=== PATIENT | male | born 1965 ===

== ENCOUNTER 2020-08-29 12:36 | Outpatient (REF) | payer OTHER, SELFPAY ==
--- NOTE | 2020-08-29 16:42 | MHC.AU.ANH ---
Adult Audiological Evaluation Date of Visit: 08/29/20 Reason for Appointment: Audiological evaluation to monitor the status of Mr. Brothers's hearing loss. He reports that he has had progressive hearing loss since and first started using hearing aids at age 6-7. He is due for updated hearing aids and [facility]. Previous Hearing Test Results: [facility], 01/2015- Moderate sloping to profound sensorineural hearing loss bilaterally with poor speech understanding abilities. Speech understanding abilities improved with lip and facial cues. Ear History: Ear Deformity: Deformity of the ossicles since Family History of Hearing Loss?: Yes: Father, son Ear Infections in Childhood: Both Ears History of Ear Wax Buildup: Both Ears Medical History: Medical History: Unremarkable Medical History Hearing Instrument History- Binaural: Core Paster: Notorious Model: Daniella 2 Pro BTE Battery Size: 13 Dispensed By: [facility] Otoscopy: Right Ear: Unremarkable Left Ear: Unremarkable Tympanometry: Tympanometry performed due to: To assess integrity of the middle ear system Right Ear: Normal Middle Ear System (Type A) Left Ear: Normal Middle Ear System (Type A) Hearing Evaluation: Transducer(s) Used: Insert Earphones, Bone Conduction Method: Conventional Audiometry Stimuli Used: Pure Tones Right Ear: Description of Hearing: Moderate sloping to profound sensorineural hearing loss from 250-8000 Hz. Left Ear: Description of Hearing: Moderate sloping to profound sensorineural hearing loss from 250-8000 Hz. Speech Recognition Threshold (SRT): Method Used: Monitored Live Voice Stimuli Used: Spondee Words Right Ear: 55 dBHL Left Ear: 60 dBHL Word Discrimination: Method: Monitored Live Voice Word Lists Used: NU-6 Right Ear: 44% at 90 dBHL Left Ear: 48% at 90 dBHL Comparison: Compared to most recent evaluation: Slight decreases in hearing from 250-500 Hz bilaterally. All other thresholds are stable. Recommendations: Audiological re-evaluation in one year. See Hearing Aid Evaluation report for more information. Hearing aid options discussed. Amador quote is being submitted to [facility]. Once approved, aids and earmolds will be ordered and Mr. Brothers will be contacted to schedule a hearing aid fitting. Diagnosis: Primary Diagnosis: H90.3 Bilateral Sensorineural Hearing Loss Services Performed: Comprehensive Audiological Evaluation (CPT 46128) Tympanometry (CPT 07963) Signature: Provider: Kei Cho, CCC-A
--- NOTE | 2020-08-29 16:44 | MHC.AU.MED ---
Medical Clearance for Hearing Instrumentation Date: 08/29/20 Patient Name: Petar Brothers Date of : 1965 Referring Provider: Giuliana Emery NP We have seen your patient on 08/29/20 and have determined that they are a candidate for amplification (See accompanying report). Specifically, they would benefit from: Hearing aid use in both ears There is a statute that addresses Medical Evaluation Requirements prior to fitting a patient with a hearing aid. According to [place] statute [facility] CMR:6.03(1), (a) General. Except as provided in 265 CMR 6.03(1)(b), a supervisor trust accounts shall not sell a hearing aid unless the prospective user has presented to the supervisor trust accounts a written statement signed by a licensed physician that states that the patient's hearing loss has been medically evaluated and the patient may be considered a candidate for a hearing aid. The medical evaluation must have taken place within the preceding six months. Please note: Due to the [place] Statute referenced above, we cannot accept a signature other than that of a licensed physician. [employer] and PA signatures cannot be accepted. I am in agreement with the above recommendation. There is no medical contraindication for hearing instrumentation. Physician Signature Date Physician Name (Printed)
--- NOTE | 2020-08-29 16:45 | MHC.AU.HAS ---
Hearing Aid Evaluation Date of Visit: 08/29/20 Historical Information: Description of Hearing: Moderate sloping to profound sensorineural hearing loss bilaterally. Current personal amplification information, if applicable: Oticon [place] 2 Pro BTEs Summary: Mr. Brothers is due for updated hearing aids and will be going through [facility] for his new hearing aids. Discussed options. Would like to stay with a similar BTE model. Recommend staying with Oticon as it is what he is used to. Hearing Aid Prescription: Based on the individual?s shared listening needs, communication environments, dexterity, desire for connectivity, and personal preferences, the following prescription for amplification has been made: Right ear: Circuit Court Clerk: Oticon Model: Opn S 2 BTE PP Battery Size: 13 Color: 90- Chroma Beige Type of Mold: Standard shell mold Left ear: Left ear prescription to be same as Right Hearing Aid above: Circuit Court Clerk: Oticon Model: Opn S 2 BTE PP Battery Size: 13 Color: 90 - Chroma Beige Type of Mold: Standard shell mold Accessories/Assistive Technology Recommended: ConnectClip for use with his work cell phone Action Taken/Action Needed: Amador quote being sent to [facility]. Earmold impressions in hold drawer. Will order aids and earmolds once approval from [facility] is received. Primary Diagnosis: H90.3 Bilateral Sensorineural Hearing Loss Signature: Provider: Kei Cho, [facility]
== END 2020-08-29 12:37 | disposition home or self-care (01) ==
LOC: HO.SH 12:36
PROVIDERS: Visit Provider Nurse Practitioner Adult Health
DX: H90.3 Sensorineural hearing loss, bilateral (principal)
CPT/HCPCS: 92557; 92567

== ENCOUNTER 2020-12-07 09:21 | Outpatient (REF) | payer SELFPAY | END 2020-12-07 09:22 | disposition home or self-care (01) | LOC: HO.HAP 09:21 | PROVIDERS: PCP Nurse Practitioner Adult Health; Visit Provider Nurse Practitioner Adult Health | DX: Z13.89 Encounter for screening for other disorder (principal) ==

== ENCOUNTER 2021-06-27 15:19 | Outpatient (REF) | payer SELFPAY | END 2021-06-27 15:20 | disposition home or self-care (01) | LOC: HO.HAP 15:19 | PROVIDERS: Visit Provider Nurse Practitioner Adult Health | DX: Z13.89 Encounter for screening for other disorder (principal) ==

== ENCOUNTER 2021-07-16 13:24 | Outpatient (REF) | payer SELFPAY | END 2021-07-16 13:25 | disposition home or self-care (01) | LOC: HO.HAP 13:24 | PROVIDERS: Visit Provider Nurse Practitioner Adult Health | DX: Z13.89 Encounter for screening for other disorder (principal) ==

== ENCOUNTER 2021-07-25 15:13 | Outpatient (REF) | payer SELFPAY | END 2021-07-25 15:14 | disposition home or self-care (01) | LOC: HO.HAP 15:13 | PROVIDERS: Visit Provider Nurse Practitioner Adult Health | DX: Z13.89 Encounter for screening for other disorder (principal) ==

== ENCOUNTER 2024-07-01 08:30 | Outpatient (REF) | payer SELFPAY ==
--- OUTSIDE RECORDS SUMMARY | 2024-07-06 08:54 | XMS_ITS | Clinical Summary ---
Author Organization [facility] Address [address] [place] [phone] Phone Care Team Providers Care Internal Controls Consultant Name Role Phone Unknown, Unknown Primary Care Provider James leon Allergies No known active allergies Medications No known medications Active Problems Problem Noted Date Diagnosed Date Sensorineural hearing loss (SNHL) of both ears 0 08/21/2020 Overview (08/21/2020): Genetic. Uses hearing aids & lip reads. Hearing aids covered by [facility] Assessment & Plan (08/21/2020 5:32 PM EDT): Referred to [facility] Family history of diabetes mellitus 08/21/2020 Immunizations Name Administration Dates Next Due COVID-19 (Pre-01/27) Moderna Vaccine, mRNA, PF 0 06/21/2020,05/24/2020 Tdap 08/21/2020 Family History Medical History Relation Comments Alcohol abuse Father Cirrhosis Father Hearing loss Father Diabetes mellitus Maternal Grandmother Diabetes mellitus Maternal Uncle Alzheimer's disease Mother in her 80s Diabetes mellitus Mother No Known Problems Sister 1 No Known Problems Sister 2 Hearing loss Son Relation Status Comments Father Maternal Grandmother Maternal Uncle Mother Sister 1 Alive Sister 2 Alive Son Alive Social History Tobacco Use Types Packs/Day Years Used Date Smoking Tobacco: Former Cigarettes Q uit: 02/21/2015 Smokeless Tobacco: Never Comments:started around age 22 Alcohol Use Standard Drinks/Week Comments Never 0 (1 standard drink = 0.6 oz pur e alcohol) Education Answer Date Recorded Are you interested in more education? Not on michael e 08/03/2022 Are you concerned about learning? Not on file 08/03/2022 No 08/03/2022 No 08/03/2022 Digital Access Answer Date Recorded No 08/31/2022 No 08/31/2022 No 08/31/2022 Reliable internet access at home? Not on file 08/31/2022 Device with a working camera? Not on file Sex and Gender Information Value Date Recorded Sex Assigned at Not on file Gender Identity Not on file Sexual Orientation Not on file Last Filed Vital Signs Vital Sign Reading Time Taken Comments Blood Pressure 122/68 08/21/2020 2:04 PM EDT Pulse 88 08/21/2020 2:04 PM EDT Temperature 37.2 ??C (99 ??F) 08/21/2020 2:04 PM EDT Respiratory Rate - - Oxygen Saturation 97% 08/21/2020 2:04 PM EDT Inhaled Oxygen Concentration - - Weight 74.2 kg (163 lb 9.6 oz) 08/21/2020 2:04 P M EDT Height 168.9 cm (5' 6.5 ) 08/21/2020 2:04 PM EDT Body Mass Index 26.01 08/21/2020 2:04 PM EDT Plan of Treatment Health Maintenance Due Date Last Done Comments DEPRESSION SCREENING 1979 SMOKING Hx and SMOKELESS TOBACCO SCREENING 01/04/1980 HIV ONE-TIME SCREENING (18-6 5 YEARS) 1985 HEPATITIS B VACCINES (1 of 3 - 19+ 3-dose series) 1986 COLOGUARD 01/04/2012 COLONOSCOPY 01/04/2012 COLORECTAL CANCER SCREENING 01/04/2012 FIT TEST 01/04/2012 FOBT 01/04/2012 SIGMOIDOSCOPY 01/04/2012 VIRTUAL COLONOSCOPY 01/04/2012 PNEUMOCOCCAL VACCINES (50+ years) (1 of 1 - PCV) 2017 ZOSTER VACCINES (1 of 2) 2017 INFLUENZA VACCINE (#1) 2023 COVID-19 VACCINE (3 - 2023-2 5 season) 2023 06/21/2020, 05/24/2020 LIPID PANEL 08/21/2025 08/21/2020 Adult Td,Tdap Booster 08/21/2030 08/21/2020 HEPATITIS B SCREENING Completed 08/28/2020 HEPATITIS C SCREENING Completed 08/28/2020 HEPATITIS A VACCINES Aged Out No long er eligible based on patient's age to complete this topic HIB VACCINES Aged Out No longer eligi ble based on patient's age to complete this topic MENINGOCOCCAL VACCINES (ACWY) Aged Out No longer eligible based on patient's age to complete this topic Medical Devices Not on file Procedures Procedure Name Priority Date/Time Associated Diagnosis Comments HEPATITIS C ANTIBODY, QUALITATIVE Routine 08/28/2020 8:15 AM EDT LFT elevation HEPATITIS B SURFACE ANTIGEN Routine 08/28/2020 8:15 AM EDT LFT elevation LIPID PANEL Routine 08/21/2020 3:12 PM EDT Family history of diabetes mellitus from Last 3 Months or Most Recently Relevant to Health Maintenance Results * Hepatitis C antibody, qualitative (08/28/2020 8:15 AM EDT) HCV NON-REACTIV E NON-REACTI VE [facility] Blood 08/28/2020 8:15 AM EDT 08/28/2020 8:17 AM EDT [facility] Performing Organization Address City/[facility] Co de Phone Number [address] [phone] * Hepatitis B surface antigen (08/28/2020 8:15 AM EDT) HBV SURFACE ANTIGEN NON-REACTI VE NON-REACTI VE [facility] Blood 08/28/2020 8:15 AM EDT 08/28/2020 8:17 AM EDT [facility] ES Performing Organization Address [facility] Co de Phone Number [address] [phone] * Lipid panel (08/21/2020 3:12 PM EDT) HDL 30 mg/dL [facility] Comment: ? Interpretation <40 mg/dL: Low HDL cholesterol (major risk factor for CHD) Greater than or equal to 60 mg/dL: High HDL cholesterol ( negative risk factor for CHD) HDL - cholesterol is affected by a number of factors, e.g. smoking, excerise, hormones, sex and age. CHOLESTEROL 144 0 - 240 mg/dL [facility] TRIGLYCERIDES 121 30 - 160 mg/dL [facility] LDL 90 50 - 129 mg/dL [facility] Comment: LDL levels in terms of risk for coronary heart disease: <100 mg/dL: Optimal 100-129 mg/dL: Near or above optimal 130-159 mg/dL: Borderline high 160-189 mg/dL: High >190 mg/dL: Very High CARDIAC RISK RATIO 4.8 3.4 - 5.0 C [facility] Blood 08/21/2020 3:12 PM EDT 08/21/2020 3:14 PM EDT Giuliana Emery DRAWING IN MACHINE TENDER HELPER LAB BLOOD ORDERABL ES [facility] [address] [place] [address] from Last 3 Months or Most Recently Relevant to Health Maintenance Care Teams Internal Controls Consultant Relationship Specialty Start Date End Date Unknown, Unknown, PCP - General 06/27/23 Additional Source Comments The information contained in this document represents components of the legal health record. It is not the complete legal health record.[facility]
== END 2024-07-01 08:31 | disposition home or self-care (01) ==
LOC: HO.HAP 08:30
PROVIDERS: Visit Provider Nurse Practitioner Adult Health
DX: Z46.1 Encounter for fitting and adjustment of hearing aid (principal)
CPT/HCPCS: 92593

== ENCOUNTER 2024-07-01 08:30 | Outpatient (REF) | payer OTHER, SELFPAY | END 2024-07-01 08:31 | disposition home or self-care (01) | LOC: HO.SH 08:30 | PROVIDERS: Visit Provider Physician Assistant | DX: Z01.118 Encounter for examination of ears and hearing with other abnormal findings (principal); H90.3 Sensorineural hearing loss, bilateral | CPT/HCPCS: 92552; 92556 ==

== ENCOUNTER 2024-07-20 10:56 | Outpatient (REF) | payer SELFPAY ==
--- OUTSIDE RECORDS SUMMARY | 2024-07-20 13:20 | XMS_ITS | Clinical Summary ---
Author Organization [facility] Address [address] [place] [phone] Phone Care Team Providers Care Files Supervisor Name Role Phone Unknown, Unknown Primary Care Provider James leon Allergies No known active allergies Medications No known medications Active Problems Problem Noted Date Diagnosed Date Sensorineural hearing loss (SNHL) of both ears 0 08/21/2020 Overview (08/21/2020): Genetic. Uses hearing aids & lip reads. Hearing aids covered by [facility] Assessment & Plan (08/21/2020 5:32 PM EDT): Referred to [facility] Family history of diabetes mellitus 08/21/2020 [...] AM EDT) HCV NON-REACTIV E NON-REACTI VE [facility] Blood 08/28/2020 8:15 AM EDT 08/28/2020 8:17 AM EDT [facility] ES Performing Organization Address City/[facility] Co de Phone Number [address] [phone] * Hepatitis B surface antigen (08/28/2020 8:15 AM EDT) HBV SURFACE ANTIGEN NON-REACTI VE NON-REACTI VE [facility] Blood 08/28/2020 8:15 AM EDT 08/28/2020 8:17 AM EDT [facility]L ES Performing Organization Address [facility] Co de Phone Number [address] [phone] * Lipid panel (08/21/2020 3:12 PM EDT) HDL 30 mg/dL [facility] Comment: ? Interpretation <40 mg/dL: Low HDL cholesterol (major risk factor for CHD) Greater than or equal to 60 mg/dL: High HDL cholesterol ( negative risk factor for CHD) HDL - cholesterol is affected by a number of factors, e.g. smoking, excerise, hormones, sex and age. CHOLESTEROL 144 0 - 240 mg/dL [facility] TRIGLYCERIDES 121 30 - 160 mg/dL [facility] LDL 90 50 - 129 mg/dL [facility] Comment: LDL levels in terms of risk for coronary heart disease: <100 mg/dL: Optimal 100-129 mg/dL: Near or above optimal 130-159 mg/dL: Borderline high 160-189 mg/dL: High >190 mg/dL: Very High CARDIAC RISK RATIO 4.8 3.4 - 5.0 C [facility] Blood 08/21/2020 3:12 PM EDT 08/21/2020 3:14 PM EDT Giuliana Emery CORE STRIPPER LAB BLOOD ORDERABL ES [facility] [address] [place] [address] from Last 3 Months or Most Recently Relevant to Health Maintenance Care Teams Files Supervisor Relationship Specialty Start Date End Date Unknown, Unknown, PCP - General 06/27/23 Additional Source Comments The information contained in this document represents components of the legal health record. It is not the complete legal health record.[facility]
== END 2024-07-20 10:57 | disposition home or self-care (01) ==
LOC: HO.HAP 10:56
PROVIDERS: Visit Provider Nurse Practitioner Adult Health
DX: Z46.1 Encounter for fitting and adjustment of hearing aid (principal)
CPT/HCPCS: V5264